=== PATIENT | female | born 1955 | race Caucasian/White ===

== ENCOUNTER → 2017-10-26 | Outpatient (CLI) | payer OTHER | LOC: FIMAGING 12:03 | PROVIDERS: ATTEND Registered Nurse | DX: M79.672 Pain in left foot (principal); G89.29 Other chronic pain; M76.892 Other specified enthesopathies of left lower limb, excluding foot ==

== ENCOUNTER 2018-09-14 07:32 | Day surgery (SDC) | payer OTHER ==
[2018-09-14] MEDS ORDERED: LR 1,000 ML IV ONE (07:53)
[2018-09-14] MEDS ORDERED: MIDAZOLAM 2 MG/2 ML VIAL ONE (08:57)
[2018-09-14] MEDS ORDERED: fentaNYL 100 MCG/2 ML INJ ONE (08:58)
--- NOTE | 2018-09-14 09:08 | PDPROPOC ---
Sedation Plan of Care Sedation Plan of Care: vital signs stable, mental status noted, patient educated of risks, benefits, alternatives, patient can tolerate sedation ASA Classification: ASA 2 Planned drugs: fentanyl, midazolam Mallampati Score: Class 2 Mallampati Reference Image: Patient passed 3-3-2 rule?: Yes
--- NOTE | 2018-09-14 09:19 | PDGENHP ---
History & Physical Chief Complaint: phx polyps History of Present Illness: large polpy removed in pieces Pertinent Past, Social, Family History: PMH - polyps, occ dysphagia. no tobacco , alcohol rare. fhx - sister polyps, gb cancer in mother Relevant Physical Exam: A+Ox3. CTA. S1S2,. +BS, soft, nt Cardiorespiratory Assessment: class 1
[2018-09-14] MEDS ORDERED: MIDAZOLAM 2 MG/2 ML VIAL IVP ONE (09:53)
[2018-09-14] MEDS ORDERED: fentaNYL 100 MCG/2 ML INJ IVP ONE (09:53)
--- NOTE | 2018-09-14 10:26 | GIREPORT ---
[facility] Surgical Services - Endoscopy Department Patient Name: Shaunna Gonzales Procedure Date: 09/14/2018 8:41 AM Patient Type: Outpatient Attending MD/ ER Physician: Rachna Anton Procedure: Colonoscopy Indications: Surveillance: Personal history of piecemeal removal of large sessile ad enoma on last colonoscopy (less than 1 year ago) Providers: Jeffrey Christine MD Referring MD: Marlo Armendariz Medicines: Fentanyl 100 micrograms IV, Midazolam 5 mg IV Complications: No immediate complications. Estimated blood loss: Minimal. Description of Procedure: After obtaining informed consent, the scope was passed under direct vis ion. Throughout the procedure, the patient's blood pressure, pulse, and oxyg en saturations were monitored continuously. The Colonoscope with irrigatio n channel was introduced through the anus and advanced to the terminal il eum, with identification of the appendiceal orifice and IC valve. The colono scopy was performed with difficulty due to significant looping. Successful completion of the procedure was aided by increasing the dose of sedatio n medication, using manual pressure and straightening and shortening the scope to obtain bowel loop reduction. The patient tolerated the procedure wel l. The quality of the bowel preparation was good. Moderate Sedation: Moderate (conscious) sedation was administered by the endoscopy nurse nils waldron supervised by the endoscopist. The following parameters were monitored: oxygen saturation, heart rate, blood pressure, and response to care. To zac physician intraservice time was 25 minutes. Findings: The digital rectal exam was normal. The terminal ileum appeared normal. A 6 mm polyp was found in the proximal ascending colon. The polyp was semi-sessile. The polyp was removed with a cold snare. Resection and retrieval were complete. Estimated blood loss was minimal. A 2 mm polyp was found in the distal ascending colon. The polyp was ses sile. The polyp was removed with a cold biopsy forceps. Resection and retriev al were complete. Estimated blood loss was minimal. A post polypectomy scar was found in the ascending colon. There was res idual polyp tissue. Biopsies were taken with a cold forceps for histology. Estimated blood loss was minimal. Fulguration to ablate the lesion remn ants by argon plasma at 0.8 liters/minute and 20 nunez was successful. Estim ated blood loss: none. Photo number 9 shows residual polypoid tissue with ar rows The exam was otherwise without abnormality. Estimated Blood Loss: Estimated blood loss was minimal. Post Op Diagnosis: - The examined portion of the ileum was normal. - One 6 mm polyp in the proximal ascending colon, removed with a cold s nare. Resected and retrieved. - One 2 mm polyp in the distal ascending colon, removed with a cold bio psy forceps. Resected and retrieved. - Post-polypectomy scar in the ascending colon. Biopsied. Treated with argon plasma coagulation (APC). - The examination was otherwise normal. Recommendation: - Await pathology results. - My office will call with the pathology result with 5-7 days. If you h ave not heard from my office by -14, do not assume the pathology is shilpi l, please call [phone] to get the pathology results. - Repeat colonoscopy date to be determined after pending pathology resu lts are reviewed for surveillance based on pathology results. If scar/polypectomy site has no tissue with cancer potential then the inte rval is 3 years. - Avoid Aspirin and NSAID's for 7-10 days except as used for cardiac or stroke prevention. - Resume previous diet. - Perform a serologic workup for celiac disease including: transglutami nase antibody (TTG) and serum IgA. IF suggestive of Celiac Disease then EGD with duodenal biopsy. - Use Protonix (pantoprazole) 40 mg PO daily for 2 months. Take 30-60 minutes before breakfast. - If her occasional dysphagia does not resolve then schedule EGD - Patient has a contact number available for emergencies. The signs and symptoms of potential delayed complications were discussed with the pat ient. Return to normal activities tomorrow. Written discharge instructions we re provided to the patient. - Continue present medications. - Discharge patient to home (ambulatory). - Return to primary care physician as previously scheduled. - Thank you for allowing me to help in your patient's care. Do not hesi fink to call with any questions. Attending Participation: I personally performed the entire procedure. Nanci Murphy M.D Jeffrey Christine MD 09/14/2018 10:26:24 AM This report has been signed electronicallyMathew MD Nanci Number of Addenda: 0 Note Initiated On: 09/14/2018 8:41 AM Total Procedure Duration Time 0 hours 23 minutes 8 seconds [email or web address]
[2018-09-14 11:02] VITALS: BP 118/66
== END 2018-09-14 10:55 | disposition home or self-care (01) ==
LOC: FSGY 07:32
PROVIDERS: ATTEND Internal Medicine Gastroenterology
DX: D12.2 Benign neoplasm of ascending colon (principal); Z86.010 Personal history of colon polyps; Z83.79 Family history of other diseases of the digestive system
CPT/HCPCS: J2250; J3010